=== PATIENT | male | born 1990 | race American Indian/Alaskan Native ===

== ENCOUNTER 2017-01-01 11:39 | Emergency (ER) | payer SELFPAY ==
[2017-01-01 11:50] VITALS: BP 126/60
--- NOTE | 2017-01-01 12:53 | Emergency Department Report ---
ED Recheck HPI - General Chief Complaint: Recheck/Abnormal Lab/Rx Stated Complaint: ASTHMA Time Seen by Provider: 01/01/17 12:48 Source: patient Mode of arrival: Ambulatory Limitations: No Limitations - History of Present Illness Initial Comments: This is a 26-year-old male came in for medication refill. Patient denies any shortness of breath, cough, symptoms of his exhibition of asthma, no chest pain. Patient stated he has a primary care physician but due to his his insurance unable to see up his primary care physician. Patient stated the last time he took his medication 3 days ago. Patient does not seem any signs of any distress nontoxic appearance. MD Complaint: medication refill request -: Gradual Returns Today for: request for prescription (medication refill) Symptoms Since Prior Visit: no new symptoms (patient denies any new symptoms or any exacerbations of his asthma) Associated Symptoms: none. denies: fever, chills, chest pain, shortness of breath, rash, malaise, abdominal pain - Related Data Previous Rx's Medication Instructions Recorded Last Taken Type ALBUTEROL Inhaler [ProAir HFA 2 puff IH QID PRN #1 inhalation 12/18/14 Unknown Rx Inhaler] Albuterol *Only Ed* [Proventil 2.5 mg IH Q4H PRN 30 Days 12/18/14 Unknown Rx 0.5% NEBS] Beclomethasone Dipropionat(Nf) 7.3 gm IH BID #1 aer.w.adap 12/18/14 Unknown Rx [Qvar] ALBUTEROL Inhaler [Proair] 2 puff IH QID PRN #1 inhalation 01/01/17 Unknown Rx ALBUTEROL NEB's [Proventil] 2.5 mg IH TID PRN #30 neb 01/01/17 Unknown Rx Beclomethasone Dipropionate [Qvar] 7.3 gm IH BID #1 aer.w.adap 01/01/17 Unknown Rx Allergies Allergy/AdvReac Type Severity Reaction Status Date / Time No Known Allergies Allergy Verified 01/01/17 11:47 ED Review of Systems ROS: Stated complaint: ASTHMA Other details as noted in HPI Constitutional: denies: chills, fever Eyes: denies: eye pain, eye discharge, vision change ENT: as per HPI. denies: ear pain, throat pain Respiratory: denies: cough, shortness of breath, wheezing Cardiovascular: denies: chest pain, palpitations Endocrine: no symptoms reported Gastrointestinal: denies: abdominal pain, nausea, diarrhea Genitourinary: denies: urgency, dysuria Musculoskeletal: denies: back pain, joint swelling, arthralgia Skin: denies: rash, lesions Neurological: denies: headache, weakness, paresthesias Psychiatric: denies: anxiety, depression Hematological/Lymphatic: denies: easy bleeding, easy bruising ED Past Medical Hx - Past Medical History Hx Asthma: Yes - Surgical History Past Surgical History?: No - Social History Smoking Status: Never Smoker Substance Use Type: Alcohol - Medications Home Medications: Home Medications Medication Instructions Recorded Confirmed Last Taken Type ALBUTEROL Inhaler [ProAir HFA 2 puff IH QID PRN #1 inhalation 12/18/14 Unknown Rx Inhaler] Albuterol *Only Ed* [Proventil 2.5 mg IH Q4H PRN 30 Days 12/18/14 Unknown Rx 0.5% NEBS] Beclomethasone Dipropionat(Nf) 7.3 gm IH BID #1 aer.w.adap 12/18/14 Unknown Rx [Qvar] ALBUTEROL Inhaler [Proair] 2 puff IH QID PRN #1 inhalation 01/01/17 Unknown Rx ALBUTEROL NEB's [Proventil] 2.5 mg IH TID PRN #30 neb 01/01/17 Unknown Rx Beclomethasone Dipropionate [Qvar] 7.3 gm IH BID #1 aer.w.adap 01/01/17 Unknown Rx ED Physical Exam - General Limitations: No Limitations General appearance: alert, in no apparent distress - Respiratory Respiratory exam: Present: normal lung sounds bilaterally. Absent: respiratory distress, wheezes, rales, rhonchi, chest wall tenderness, accessory muscle use - Cardiovascular Cardiovascular Exam: Present: regular rate, normal rhythm. Absent: systolic murmur, diastolic murmur, rubs, gallop - GI/Abdominal GI/Abdominal exam: Present: soft, normal bowel sounds - Neurological Exam Neurological exam: Present: alert, oriented X3 - Psychiatric Psychiatric exam: Present: normal affect, normal mood - Skin Skin exam: Present: warm, dry, intact ED Course Vital Signs 01/01/17 11:47 Temperature 97.8 F Pulse Rate 65 Respiratory 19 Rate Blood Pressure 126/60 O2 Sat by Pulse 98 Oximetry ED Recheck MDM - Medical Decision Making ED course: 1- this 26-year-old male came in for medication refill. Denies any asthma exacerbation and denies shortness of breath, denies cough. Patient does not seem toxic or in appearance of any signs distress. 2-normal vital signs. 3- prescribed Proair, Proventil, Qvar. 4- discussed patient with Dr. Burrell and agreed to not give him prednisone due no acute symptoms and no medical physician to properly moderate patient. Critical care attestation.: If time is entered above; I have spent that time in minutes in the direct care of this critically ill patient, excluding procedure time. ED Disposition Clinical Impression: Medication refill, Asthma Disposition: DISCHARGED TO HOME OR SELFCARE Is pt being admited?: No Does the pt Need Aspirin: No Condition: Stable Instructions: Asthma (ED) Additional Instructions: Please follow up with primary care physician in 3-5 days. If symptoms worsen please come back to emergency department. Prescriptions: ALBUTEROL Inhaler [Proair] 2 puff IH QID PRN #1 inhalation PRN Reason: Shortness Of Breath ALBUTEROL NEB's [Proventil] 2.5 mg IH TID PRN #30 neb PRN Reason: Wheezing Beclomethasone Dipropionate [Qvar] 7.3 gm IH BID #1 aer.w.adap Referrals: [facility] [Outside] - 3-5 Days [facility] [Outside] - 3-5 Days Forms: Work/School Release Form(ED)
== END 2017-01-01 13:43 | disposition home or self-care (01) ==
LOC: ED 11:39
DX: Z76.0 Encounter for issue of repeat prescription (principal); J45.909 Unspecified asthma, uncomplicated
CPT/HCPCS: 99282

== ENCOUNTER 2017-03-12 22:36 | Inpatient (IN) | payer SELFPAY ==
[2017-03-12] MEDS ORDERED: DUONEB 0.5 MG-3 MG/3 ML SOLN IH ONE ×3 (22:56→23:31)
[2017-03-12] MEDS: ATROVENT IH ONE (23:08)
[2017-03-12] MEDS ORDERED: DELTASONE PO ONE (23:30)
[2017-03-12] MEDS ORDERED: DELTASONE ONE (23:36)
[2017-03-12] MEDS ORDERED: PROVENTIL IH ONE ×2 (23:41→23:45)
[2017-03-12 23:59] LABS: Hematocrit 45.1 % (35.5-45.6); Hemoglobin 15.2 gm/dl (11.8-15.2); Mean Corpuscular HGB Conc 34 % (32-34); Mean Corpuscular Hemoglobin 29 pg (28-32); Mean Corpuscular Volume 86 fl (84-94); Platelet Count 169 K/mm3 (140-440); Red Blood Count 5.25 M/mm3 (3.65-5.03); Red Cell Distribution Width 12.3 % (13.2-15.2); White Blood Count 9.9 K/mm3 (4.5-11.0)
[2017-03-13 00:16] LABS: Anion Gap 18 mmol/L; BUN/Creatinine Ratio 13.75; Blood Urea Nitrogen 11 mg/dL (9-20); Calcium 9.4 mg/dL (8.4-10.2); Carbon Dioxide 25 mmol/L (22-30); Glucose 141 mg/dL (75-100); Potassium 3.3 mmol/L (3.6-5.0); Sodium 141 mmol/L (137-145)
--- NOTE | 2017-03-13 01:19 | Emergency Department Report ---
ED Asthma HPI - General Chief Complaint: Adult Asthma Stated Complaint: ALVERTO/ASTHMA/CHEST TIGHTNESS Time Seen by Provider: 03/13/17 00:47 Source: patient Mode of arrival: Ambulatory Limitations: No Limitations - History of Present Illness MD Complaint: "asthma attack" Onset/Timin -: Gradual, days(s) Asthma History: childhood onset Severity: moderate Context: ran out of meds Associated Symptoms: dry cough, chest pain (chest tightness). denies: fever, hemoptysis, leg edema, syncope Treatments Prior to Arrival: other (none) - Related Data Current Asthma Therapy: inhaled bronchodilator Previous Rx's Medication Instructions Recorded Last Taken Type ALBUTEROL Inhaler [ProAir HFA 2 puff IH QID PRN #1 inhalation 12/18/14 Unknown Rx Inhaler] Albuterol *Only Ed* [Proventil 2.5 mg IH Q4H PRN 30 Days 12/18/14 Unknown Rx 0.5% NEBS] Beclomethasone Dipropionat(Nf) 7.3 gm IH BID #1 aer.w.adap 12/18/14 Unknown Rx [Qvar] ALBUTEROL Inhaler [Proair] 2 puff IH QID PRN #1 inhalation 01/01/17 Unknown Rx ALBUTEROL NEB's [Proventil] 2.5 mg IH TID PRN #30 neb 01/01/17 Unknown Rx Beclomethasone Dipropionate [Qvar] 7.3 gm IH BID #1 aer.w.adap 01/01/17 Unknown Rx Allergies Allergy/AdvReac Type Severity Reaction Status Date / Time No Known Allergies Allergy Verified 01/01/17 11:47 ED Review of Systems ROS: Stated complaint: ALVERTO/ASTHMA/CHEST TIGHTNESS Other details as noted in HPI Constitutional: denies: chills, fever Eyes: denies: eye pain, eye discharge, vision change ENT: congestion. denies: ear pain, throat pain, dental pain, hearing loss, epistaxis Respiratory: cough, shortness of breath, wheezing Cardiovascular: chest pain. denies: palpitations, orthopnea, edema, syncope, paroxysmal nocturnal dyspnea Endocrine: no symptoms reported Genitourinary: denies: urgency, dysuria Musculoskeletal: denies: back pain, joint swelling, arthralgia Skin: denies: rash, lesions Neurological: denies: headache, weakness, paresthesias Psychiatric: denies: anxiety, depression Hematological/Lymphatic: denies: easy bleeding, easy bruising ED Past Medical Hx - Past Medical History Previous Medical History?: Yes Hx Asthma: Yes - Surgical History Past Surgical History?: No - Social History Smoking Status: Never Smoker Substance Use Type: None - Medications Home Medications: Home Medications Medication Instructions Recorded Confirmed Last Taken Type ALBUTEROL Inhaler [ProAir HFA 2 puff IH QID PRN #1 inhalation 12/18/14 Unknown Rx Inhaler] Albuterol *Only Ed* [Proventil 2.5 mg IH Q4H PRN 30 Days 12/18/14 Unknown Rx 0.5% NEBS] Beclomethasone Dipropionat(Nf) 7.3 gm IH BID #1 aer.w.adap 12/18/14 Unknown Rx [Qvar] ALBUTEROL Inhaler [Proair] 2 puff IH QID PRN #1 inhalation 01/01/17 Unknown Rx ALBUTEROL NEB's [Proventil] 2.5 mg IH TID PRN #30 neb 01/01/17 Unknown Rx Beclomethasone Dipropionate [Qvar] 7.3 gm IH BID #1 aer.w.adap 01/01/17 Unknown Rx ED Physical Exam - General Limitations: No Limitations General appearance: alert, in no apparent distress - Head Head exam: Present: atraumatic, normocephalic - Eye Eye exam: Present: normal appearance, PERRL, EOMI Pupils: Present: normal accommodation - ENT ENT exam: Present: normal orophraynx, mucous membranes moist, TM's normal bilaterally, normal external ear exam - Neck Neck exam: Present: normal inspection, full ROM. Absent: tenderness, lymphadenopathy, thyromegaly - Respiratory Respiratory exam: Present: wheezes, chest wall tenderness, decreased breath sounds. Absent: rales, rhonchi, stridor, accessory muscle use, prolonged expiratory - Cardiovascular Cardiovascular Exam: Present: tachycardia, normal heart sounds. Absent: rubs, gallop - GI/Abdominal GI/Abdominal exam: Present: soft, normal bowel sounds. Absent: distended, tenderness, guarding, rebound, bruit, hernia - Rectal Rectal exam: Present: deferred - Extremities Exam Extremities exam: Present: normal inspection - Back Exam Back exam: Present: normal inspection - Neurological Exam Neurological exam: Present: alert, altered, oriented X3, CN II-XII intact, normal gait, motor sensory deficit, reflexes normal - Psychiatric Psychiatric exam: Present: normal affect, normal mood - Skin Skin exam: Present: warm, dry, intact ED Course Vital Signs 03/12/17 03/12/17 03/12/17 22:39 23:07 23:16 Temperature 97.5 F L Pulse Rate 110 H Pulse Rate [ 110 H 107 H Posterior Bilateral Throughout] Respiratory 22 Rate Respiratory 18 18 Rate [Posterior Bilateral Throughout] Blood Pressure 140/70 [Right] O2 Sat by Pulse 93 Oximetry 03/12/17 03/12/17 03/12/17 23:20 23:33 23:54 Temperature Pulse Rate Pulse Rate [ 107 H 111 H 103 H Posterior Bilateral Throughout] Respiratory Rate Respiratory 18 18 18 Rate [Posterior Bilateral Throughout] Blood Pressure [Right] O2 Sat by Pulse Oximetry 03/13/17 03/13/17 00:24 01:25 Temperature Pulse Rate 93 H Pulse Rate [ 103 H Posterior Bilateral Throughout] Respiratory 18 Rate Respiratory 16 Rate [Posterior Bilateral Throughout] Blood Pressure 120/67 [Right] O2 Sat by Pulse 88 Oximetry - Reevaluation(s) Reevaluation #1: pt awake alert mild accessory muscle use with breathing, admitted hospitalist at this time DX Asthma Exacerbation. 03/13/17 02:54 ED Medical Decision Making - Lab Data Result diagrams: 03/12/17 23:26 03/12/17 23:26 - Medical Decision Making pt is a 26 y/o aam with asthma no albuterol inhaler nonadherent with same pt denies smoking no substance presents increasing sob x 1 week with exp wheezing , labs noted, pt tx duonebs x 3, prednisone 60 mg po , without improve, pt ambulated ed with increased [place], exam: lungs exp wheezing with diminished bases bilat, pt with eldridge, ABG: PO2: 63 plan admit to hospitalist Dx: Asthma Exacerbation, D-Dimer pending r/o PE will order CT PE protocol of DDimer elevated, discussed same with patient, patient verbalized agreement and understanding with treatment plan. Critical care attestation.: If time is entered above; I have spent that time in minutes in the direct care of this critically ill patient, excluding procedure time. ED Disposition Clinical Impression: Asthma exacerbation, Shortness of breath Disposition: OP ADMIT IP TO THIS HOSP Is pt being admited?: Yes Does the pt Need Aspirin: No Condition: Undetermined Instructions: Asthma (ED) Referrals: PRIMARY CARE, [Primary Care Provider] - 3-5 Days Time of Disposition: 02:54
[2017-03-13] MEDS ORDERED: PROVENTIL IH ONE ×2 (01:31→02:50)
[2017-03-13] MEDS ORDERED: ATROVENT IH ONE (02:52)
[2017-03-13] MEDS: ATROVENT IH ONE (03:55)
[2017-03-13 04:01] LABS: ISTAT Base Excess -2; ISTAT DEVICE 0; ISTAT HCO3 22.3; ISTAT PCO2 31.1 (35-45); ISTAT PH 7.463 (7.35-7.45); ISTAT PO2 63 (80-105); ISTAT SO2 93; ISTAT TCO2 23
[2017-03-13] MEDS ORDERED: MILK OF MAGNESIA PO PRN (04:07)
[2017-03-13] MEDS ORDERED: TYLENOL PO PRN (04:07)
[2017-03-13] MEDS ORDERED: DULCOLAX PR PRN (04:07)
[2017-03-13] MEDS ORDERED: ZOFRAN IV PRN (04:07)
--- NOTE | 2017-03-13 04:22 | History and Physical Report ---
History of Present Illness Date of examination: 03/20/17 History of present illness: : 6-year-old man with history of asthma comes emergency room with complaints of shortness of breath and chest tightness 2 days. The symptoms have not been relieved with nebulizer treatments here complaining of cough productive of yellow phlegm, fever Patient denies chest pain, palpitation, shortness of breath,abdominal pain, hematochezia, dysuria, frequency, focal weakness, dysarthria,chills, polydipsia polyuria, hot or cold intolerance, easy bruisability, or rash or bleeding from mucosal membrane, rhinorrhea, epistaxis, earache, tinnitus, blurry vision, eye discharge, anxiety, depression. Other review of systems negative PAST SURGICAL HISTORY: None SOCIAL HISTORY: Occasional alcohol, no tobacco or drugs FAMILY HISTORY: Hypertension Medications and Allergies Allergies Allergy/AdvReac Type Severity Reaction Status Date / Time No Known Allergies Allergy Verified 01/01/17 11:47 Home Medications Medication Instructions Recorded Confirmed Last Taken Type ALBUTEROL Inhaler [ProAir HFA 2 puff IH QID PRN #1 inhalation 12/18/14 Unknown Rx Inhaler] Albuterol *Only Ed* [Proventil 2.5 mg IH Q4H PRN 30 Days 12/18/14 Unknown Rx 0.5% NEBS] Beclomethasone Dipropionat(Nf) 7.3 gm IH BID #1 aer.w.adap 12/18/14 Unknown Rx [Qvar] ALBUTEROL Inhaler [Proair] 2 puff IH QID PRN #1 inhalation 01/01/17 Unknown Rx ALBUTEROL NEB's [Proventil] 2.5 mg IH TID PRN #30 neb 01/01/17 Unknown Rx Beclomethasone Dipropionate [Qvar] 7.3 gm IH BID #1 aer.w.adap 01/01/17 Unknown Rx Active Meds: Active Medications Acetaminophen (Tylenol) 650 mg PO Q4H PRN PRN Reason: Pain MILD(1-3)/Fever >100.5/PAULA Albuterol/Ipratropium (Duoneb 0.5 Mg-3 Mg/3 Ml Soln) 1 ampul IH Q6HRT BOLA Bisacodyl (Dulcolax) 10 mg ND QDAY PRN PRN Reason: Constipation unrelieved by MOM Enoxaparin Sodium (Lovenox) 40 mg SUB-Q QDAY BOLA Magnesium Hydroxide (Milk Of Magnesia) 30 ml PO Q4H PRN PRN Reason: Constipation Methylprednisolone Sodium Succinate (Solu-Medrol) 125 mg IV Q6H BOLA Ondansetron HCl (Zofran) 4 mg IV Q8H PRN PRN Reason: N/V unrelieved by Reglan Exam - Physical Exam Narrative exam: Gen. appearance: Patient lying in bed, no apparent distress HEENT: Normocephalic, atraumatic, pupils equally round and reactive to light, extraocular movement intact, and no sclericterus,. No JVD or thyromegaly or nodule,neck supple, no carotid bruit ,mucous membranes moist, no exudate or erythema Heart: S1, S2, regular rate and rhythm Lungs: Wheezing decreased air entry bilaterally, breathing comfortable Abdomen: Positive bowel sounds, nontender, nondistended, no organomegaly Extremity: No edema, cyanosis, clubbing Skin: No rash, nodules, warm, dry Neuro: Oriented 3, cranial nerves II-12 intact, speech is fluent, motor and sensory intact - Constitutional Vitals: Temp Pulse Resp BP Pulse Ox 97.5 F L 87 18 120/67 88 03/12/17 22:39 03/13/17 03:56 03/13/17 03:56 03/13/17 01:25 03/13/17 01:25 Results - Labs CBC & Chem 7: 03/12/17 23:26 03/12/17 23:26 Labs: Abnormal lab results 03/12/17 03/12/17 03/13/17 Range/Units 23:26 23:26 02:38 RBC 5.25 H (3.65-5.03) M/mm3 RDW 12.3 L (13.2-15.2) % POC ABG pH 7.463 H (7.35-7.45) POC ABG pCO2 31.1 L (35-45) POC ABG pO2 63 L (80-105) Potassium 3.3 L (3.6-5.0) mmol/L Glucose 141 H (75-100) mg/dL - Imaging and Cardiology Chest x-ray: image reviewed Assessment and Plan Asthma exacerbation with bronchitis Admit to medicine Start IV steroids, azithromycin, nebulizer treatments Start DVT prophylaxis
[2017-03-13 06:01] LABS: Basophils % (Manual) 0 % (0.0-1.8); Blastocytes % (Manual) 0 %
[2017-03-13 06:02] LABS: Anisocytosis Few; Diff Status Complete
--- NOTE | 2017-03-13 07:10 | Admit Criteria Form ---
Admission Criteria Documentation: ASTHMA Clinical Indications for Admission to Inpatient Care (Place 'X' for any and all applicable criteria): Admission is indicated for ANY ONE of the following (1)(2)(3)(4)(5): [ ]I. Absent or markedly diminished breath sounds (silent chest) [ ]II. Oxygen saturation < 92% [ ]III. PaCO2 = / > 42 mm Hg (5.6 kPa) [ ]IV. Peak expiratory flow rate < 40% of predicted or personal best after treatment. [ ]V. Peak expiratory flow rate < 33% of predicted or personal before after treatment [ ]. Change in mental status [ ]VII. Ventilatory support required [ ]VIII. PaO2 < 60 mm Hg (8.0 kPa) [ ]IX. Cyanosis [ ]X. Cardiac dysrhythmia (e.g., bradycardia) [ ]XI. Hemodynamic instability [ ]XII. Radiographic evidence of complication requiring inpatient treatment (e.g., pneumonia, pneumothorax) [X ]XIII. Inpatient admission required rather than observation care (also use Asthma: Observation Care guideline as appropriate) because of ANY ONE of the following: [ X]a) Respiratory finding that is severe or persistent (eg, dyspnea, tachypnea, accessory muscle use) [ ]b) Airflow measurements less than 60% of predicted or personal best that persist (e.g., over 24 hours) or worsen despite treatments [ ]c) Supplemental oxygen or respiratory treatments for over 24 hours that are performable only in acute inpatient setting [ ]d) Other condition, treatment or monitoring requiring inpatient admission. Extended stay beyond goal length of stay may be needed for (26)(27)(28): [ ]a) Severe respiratory failure (23) (29) (30) [ ]b) Secondary causes and complications (25) [ ]c) Status asthmaticus [ ]d) Chronic obstructive asthma [ ]e) Older patients (29) [ ]f) Slow resolution [ ]g) Clinically significant exacerbation of comorbidities (eg, pam. heart failure, atrial fibrillation) The original [employer] content created by [employer] has been revised. The portions of the content which have been revised are identified through the use of italic text or in bold, and [employer] has neither reviewed nor approved the modified material. All other unmodified content is copyright [employer] Please see references footnoted in the original [facility] edition 2016 Admission Criteria Met: Yes
--- NOTE | 2017-03-13 08:53 | XRay Report ---
CHEST TWO VIEWS: 03/12/17 22:36:00 CLINICAL: Shortness of breath. COMPARISON: None FINDINGS: Normal heart and pulmonary vasculature. The lungs are normally expanded and clear. The bones and soft tissues are normal. IMPRESSION: Normal chest.
[2017-03-13] MEDS: DUONEB 0.5 MG-3 MG/3 ML SOLN IH SCH ×3 (08:54→21:27)
[2017-03-13] MEDS: LOVENOX SUB-Q SCH (11:28)
[2017-03-13] MEDS: ZITHROMAX 500 MG in NACL 0.9% 250ML 250 ML IV SCH (14:37)
[2017-03-14] MEDS: DUONEB 0.5 MG-3 MG/3 ML SOLN IH SCH ×3 (02:17→16:30)
[2017-03-14 06:20] LABS: Basophils % (Auto) 0.1 % (0.0-1.8); Hematocrit 46.9 % (35.5-45.6); Hemoglobin 15.7 gm/dl (11.8-15.2); Mean Corpuscular HGB Conc 34 % (32-34); Mean Corpuscular Hemoglobin 29 pg (28-32); Mean Corpuscular Volume 86 fl (84-94); Platelet Count 193 K/mm3 (140-440); Red Blood Count 5.46 M/mm3 (3.65-5.03); Red Cell Distribution Width 12.3 % (13.2-15.2); White Blood Count 17.5 K/mm3 (4.5-11.0)
[2017-03-14 06:32] LABS: Anion Gap 16 mmol/L; Blood Urea Nitrogen 19 mg/dL (9-20); Calcium 9.7 mg/dL (8.4-10.2); Carbon Dioxide 25 mmol/L (22-30); Chloride 100.8 mmol/L (98-107); Glucose 144 mg/dL (75-100); Potassium 5.1 mmol/L (3.6-5.0); Sodium 137 mmol/L (137-145)
--- NOTE | 2017-03-14 08:16 | Progress Note ---
Assessment and Plan Assessment and plan: Pt is a 26 y/o male with asthma admitted with increasing sob x 1 week with exp wheezing, unfortunately not compliant with nebs due to lack of them. Deneis any tobacco or susbstance abuse. In the er pt tx duonebs x 3, prednisone 60 mg po , without improve, pt ambulated ed with increased [place] * Hypoxic Respiratory failure- decreased sat on ambulation in the ER, secondary to asthma exacerbation- Wean oxygen as tolerated * Asthmatic Bronchitis with exacerbation-taper steroids, continue nebs, Peak flow. counselling and need to follow up provided in detail. * Hyperkalemia- was hypokalemic on admission, likely due to correction. will monitor in am, no arrythemia noted * Leukocytosis- iatrogenic secondary to steriods, no evidence of sepsis Hospitalist Physical - Constitutional Vitals: Temp Pulse Resp BP Pulse Ox 98.9 F 98 H 18 125/60 93 03/14/17 00:25 03/14/17 02:33 03/14/17 02:33 03/14/17 00:25 03/14/17 00:25 Results - Labs CBC & Chem 7: 03/14/17 05:47 03/14/17 05:47 Labs: Laboratory Last Values WBC 17.5 K/mm3 (4.5-11.0) H 03/14/17 05:47 RBC 5.46 M/mm3 (3.65-5.03) H 03/14/17 05:47 Hgb 15.7 gm/dl (11.8-15.2) H 03/14/17 05:47 Hct 46.9 % (35.5-45.6) H 03/14/17 05:47 MCV 86 fl (84-94) 03/14/17 05:47 MCH 29 pg (28-32) 03/14/17 05:47 MCHC 34 % (32-34) 03/14/17 05:47 RDW 12.3 % (13.2-15.2) L 03/14/17 05:47 Plt Count 193 K/mm3 (140-440) 03/14/17 05:47 Lymph % (Auto) 6.1 % (13.4-35.0) L 03/14/17 05:47 [place] % (Auto) 4.5 % (0.0-7.3) 03/14/17 05:47 Eos % (Auto) 0.0 % (0.0-4.3) 03/14/17 05:47 Baso % (Auto) 0.1 % (0.0-1.8) 03/14/17 05:47 Lymph # 1.1 K/mm3 (1.2-5.4) L 03/14/17 05:47 [place] # 0.8 K/mm3 (0.0-0.8) 03/14/17 05:47 Eos # 0.0 K/mm3 (0.0-0.4) 03/14/17 05:47 Baso # 0.0 K/mm3 (0.0-0.1) 03/14/17 05:47 Add Manual Diff Complete 03/12/17 23:26 Total Counted 100 03/12/17 23:26 Seg Neutrophils % 89.3 % (40.0-70.0) H 03/14/17 05:47 Seg Neuts % (Manual) 42.0 % (40.0-70.0) 03/12/17 23:26 Band Neutrophils % 1.0 % 03/12/17 23:26 Lymphocytes % (Manual) 22.0 % (13.4-35.0) 03/12/17 23:26 Reactive Lymphs % (Man) 0 % 03/12/17 23:26 Monocytes % (Manual) 8.0 % (0.0-7.3) H 03/12/17 23:26 Eosinophils % (Manual) 27.0 % (0.0-4.3) H 03/12/17 23:26 Basophils % (Manual) 0 % (0.0-1.8) 03/12/17 23:26 Metamyelocytes % 0 % 03/12/17 23:26 Myelocytes % 0 % 03/12/17 23:26 Promyelocytes % 0 % 03/12/17 23:26 Blast Cells % 0 % 03/12/17 23:26 Nucleated RBC % Not Reportable 03/12/17 23:26 Seg Neutrophils # 15.7 K/mm3 (1.8-7.7) H 03/14/17 05:47 Seg Neutrophils # Man 4.2 K/mm3 (1.8-7.7) 03/12/17 23:26 Band Neutrophils # 0.1 K/mm3 03/12/17 23:26 Lymphocytes # (Manual) 2.2 K/mm3 (1.2-5.4) 03/12/17 23:26 Abs React Lymphs (Man) 0.0 K/mm3 03/12/17 23:26 Monocytes # (Manual) 0.8 K/mm3 (0.0-0.8) 03/12/17 23:26 Eosinophils # (Manual) 2.7 K/mm3 (0.0-0.4) H 03/12/17 23:26 Basophils # (Manual) 0.0 K/mm3 (0.0-0.1) 03/12/17 23:26 Metamyelocytes # 0.0 K/mm3 03/12/17 23:26 Myelocytes # 0.0 K/mm3 03/12/17 23:26 Promyelocytes # 0.0 K/mm3 03/12/17 23:26 Blast Cells # 0.0 K/mm3 03/12/17 23:26 WBC Morphology Not Reportable 03/12/17 23:26 Hypersegmented Neuts Not Reportable 03/12/17 23:26 Hyposegmented Neuts Not Reportable 03/12/17 23:26 Hypogranular Neuts Not Reportable 03/12/17 23:26 Smudge Cells Not Reportable 03/12/17 23:26 Toxic Granulation Not Reportable 03/12/17 23:26 Toxic Vacuolation Not Reportable 03/12/17 23:26 Dohle Bodies Not Reportable 03/12/17 23:26 Pelger-Huet Anomaly Not Reportable 03/12/17 23:26 Cruz Rods Not Reportable 03/12/17 23:26 Platelet Estimate Appears normal 03/12/17 23:26 Clumped Platelets Not Reportable 03/12/17 23:26 Plt Clumps, EDTA Not Reportable 03/12/17 23:26 Large Platelets Not Reportable 03/12/17 23:26 Giant Platelets Not Reportable 03/12/17 23:26 Platelet Satelliting Not Reportable 03/12/17 23:26 Plt Morphology Comment Not Reportable 03/12/17 23:26 RBC Morphology Not Reportable 03/12/17 23:26 Dimorphic RBCs Not Reportable 03/12/17 23:26 Polychromasia Not Reportable 03/12/17 23:26 Hypochromasia Not Reportable 03/12/17 23:26 Poikilocytosis Not Reportable 03/12/17 23:26 Anisocytosis Few 03/12/17 23:26 Microcytosis Not Reportable 03/12/17 23:26 Macrocytosis Not Reportable 03/12/17 23:26 Spherocytes Not Reportable 03/12/17 23:26 Pappenheimer Bodies Not Reportable 03/12/17 23:26 Sickle Cells Not Reportable 03/12/17 23:26 Target Cells Not Reportable 03/12/17 23:26 Tear Drop Cells Not Reportable 03/12/17 23:26 Ovalocytes Not Reportable 03/12/17 23:26 Helmet Cells Not Reportable 03/12/17 23:26 [place] Bodies Not Reportable 03/12/17 23:26 [place] Rings Not Reportable 03/12/17 23:26 [place] Cells Not Reportable 03/12/17 23:26 Bite Cells Not Reportable 03/12/17 23:26 Crenated Cell Not Reportable 03/12/17 23:26 Elliptocytes Not Reportable 03/12/17 23:26 Acanthocytes (Spur) Not Reportable 03/12/17 23:26 Rouleaux Not Reportable 03/12/17 23:26 Hemoglobin C Crystals Not Reportable 03/12/17 23:26 Schistocytes Not Reportable 03/12/17 23:26 Malaria parasites Not Reportable 03/12/17 23:26 Kaleb Bodies Not Reportable 03/12/17 23:26 Hem Pathologist Commnt No 03/12/17 23:26 D-Dimer 218.01 ng/mlDDU (0-234) 03/13/17 03:17 POC ABG pH 7.463 (7.35-7.45) H 03/13/17 02:38 POC ABG pCO2 31.1 (35-45) L 03/13/17 02:38 POC ABG pO2 63 (80-105) L 03/13/17 02:38 POC ABG HCO3 22.3 03/13/17 02:38 POC ABG Total CO2 23 03/13/17 02:38 POC ABG O2 Sat 93 03/13/17 02:38 POC ABG Base Excess -2 03/13/17 02:38 VBG pH 7.347 (7.320-7.420) 03/12/17 23:26 FiO2 21 % 03/13/17 02:38 Sodium 137 mmol/L (137-145) 03/14/17 05:47 Potassium 5.1 mmol/L (3.6-5.0) H D 03/14/17 05:47 Chloride 100.8 mmol/L (98-107) 03/14/17 05:47 Carbon Dioxide 25 mmol/L (22-30) 03/14/17 05:47 Anion Gap 16 mmol/L 03/14/17 05:47 BUN 19 mg/dL (9-20) 03/14/17 05:47 Creatinine 1.0 mg/dL (0.8-1.5) 03/14/17 05:47 Estimated GFR > 60 ml/min 03/14/17 05:47 BUN/Creatinine Ratio 19.00 % 03/14/17 05:47 Glucose 144 mg/dL (75-100) H 03/14/17 05:47 Lactic Acid 1.50 mmol/L (0.7-2.0) 03/12/17 23:26 Calcium 9.7 mg/dL (8.4-10.2) 03/14/17 05:47 Magnesium 2.10 mg/dL (1.7-2.3) 03/12/17 23:26 Troponin T < 0.010 ng/mL (0.00-0.029) 03/12/17 23:26
[2017-03-14] MEDS: LOVENOX SUB-Q SCH (10:43)
--- NOTE | 2017-03-14 11:51 | Discharge Summary ---
Providers - Providers Date of Admission: 03/13/17 04:07 Date of discharge: 03/14/17 Attending physician: MAHNAZ MADRID MD Primary care physician: [facility] [employer] [employer] Hospitalization Reason for admission: acute respiratory distress Condition: Stable Hospital course: 26-year-old man with history of asthma comes emergency room with complaints of shortness of breath and chest tightness 2 days. The symptoms have not been relieved with nebulizer treatments here complaining of cough productive of yellow phlegm, fever. Patient informs me today that he has not ever had this type of situation in the past. He recently moved into his grandmother's old home and he feels that advance has not been cleaned and this is what triggered his asthma. He is significantly improved today. Although I did inform him that we just changed his steroids to a lower dose he adamantly wants to be discharged. I have prescribed prolonged taper of steroids for him. I've also provided counseling to him and management pending to follow up with his primary care physician and also to start on a peak flow meter. He is ambulating with improvement of his saturation not requiring oxygen saturating 94% on room air. Patient denies chest pain, palpitation, shortness of breath,abdominal pain, hematochezia, dysuria, frequency, focal weakness, dysarthria,chills, polydipsia polyuria, hot or cold intolerance, easy bruisability, or rash or bleeding from mucosal membrane, rhinorrhea, epistaxis, earache, tinnitus, blurry vision, eye discharge, anxiety, depression. Other review of systems negative Discharge diagnosis * Acute hypoxic respiratory failure * Asthma exacerbation * Asthmatic bronchitis * Leukocytosis reactive * Hyperkalemia Disposition: - TO HOME OR SELFCARE Time spent for discharge: 35 mins Core Measure Documentation - Palliative Care Palliative Care/ Comfort Measures: Not Applicable - Core Measures Any of the following diagnoses?: none - VTE Discharge Requirements Deep Vein Thrombosis/Pulmonary Embolism Present on Admission: No Exam - Physical Exam Narrative exam: VITAL SIGNS: Reviewed. GENERAL: The patient appeared well nourished and normally developed. Vital signs as documented. HEAD: No signs of head trauma. EYES: Pupils are equal. Extraocular motions intact. EARS: Hearing grossly intact. MOUTH: Oropharynx is normal. NECK: No adenopathy, no JVD. CHEST: Chest with mild expiratory wheeze at the bases bilaterally CARDIAC: Regular rate and rhythm. S1 and S2, without murmurs, gallops, or rubs. VASCULAR: No Edema. Peripheral pulses normal and equal in all extremities. ABDOMEN: Soft, without detectable tenderness. No sign of distention. No rebound or guarding, and no masses palpated. Bowel Sounds normal. MUSCULOSKELETAL: Good range of motion of all major joints. Extremities without clubbing, cyanosis or edema. NEUROLOGIC EXAM: Alert and oriented x 3. No focal sensory or strength deficits. Speech normal. Follows commands. PSYCHIATRIC: Mood normal. SKIN: No rash or lesions. - Constitutional Vitals: Temp Pulse Resp BP Pulse Ox 99.7 F H 101 H 18 141/59 93 03/14/17 09:20 03/14/17 09:52 03/14/17 09:52 03/14/17 09:20 03/14/17 09:50 Plan Activity: advance as tolerated, fall precautions Diet: regular Follow up with: PRIMARY CARE, [Primary Care Provider] - 3-5 Days Prescriptions: Azithromycin [Zithromax TAB] 250 mg PO QDAY #5 tablet predniSONE [Deltasone] 10 mg PO .TAPER #48 tab
[2017-03-14] MEDS: ZITHROMAX 500 MG in NACL 0.9% 250ML 250 ML IV SCH (11:55)
[2017-03-14 19:09] VITALS: BP 112/57
== END 2017-03-14 17:00 | disposition home or self-care (01) | DRG 189 ==
LOC: ED 22:36 → 3A 03-13 04:07
PROVIDERS: ADMIT Internal Medicine; ATTEND Internal Medicine
PROC: 4A033R1 Measurement of Arterial Saturation, Peripheral, Percutaneous Approach (ICD-10-PCS; principal; 2017-03-13)
DX: J96.01 Acute respiratory failure with hypoxia (principal); J45.901 Unspecified asthma with (acute) exacerbation; D72.829 Elevated white blood cell count, unspecified; E87.5 Hyperkalemia; Z71.89 Other specified counseling; Z82.49 Family history of ischemic heart disease and other diseases of the circulatory system
CPT/HCPCS: 36415; 71020; 80048; 82140; 82803; 82805; 83735; 84484; 85007; 85025; 85379; 93005; 93010; 94640; 94760; J0456; J1650; J2920; J2930; J7050; J7512

== ENCOUNTER 2018-04-22 00:32 | Emergency (ER) | payer OTHER ==
[2018-04-22 02:24] LABS: Bilirubin,Urine NEG (Negative); Blood,Urine NEG (Negative); Color,Urine Yellow (Yellow); Protein,Urine <15 mg/dL mg/dL (Negative); Urobilinogen,Urine < 2.0 mg/dL (<2.0); WBC,Urine < 1.0 /HPF (0.0-6.0)
--- NOTE | 2018-04-22 03:23 | Ultrasound Report ---
FINAL REPORT PROCEDURE: US TESTICULAR DOPPLER COMP TECHNIQUE: Real-time larsen-scale and color flow Doppler sonography in multiple planes of the scrotum, testicles, and epididymes was performed. Velocity spectral waveform analysis Doppler imaging of the arterial inflow and venous outflow of the testicles was performed with image documentation. CPT 38678 and 90757 HISTORY: testicular pain COMPARISON: No prior studies are available for comparison. FINDINGS: RIGHT TESTICLE: Size: 4.7 x 2.3 x 3.4 cm . Appearance: Normal size and echotexture . Arterial blood flow: Normal spectral waveforms, flow velocities and color flow images.. Venous blood flow: Normal spectral waveforms and color flow images. Right epididymis: Normal size and echotexture . Hydrocele: None . LEFT TESTICLE Size: 4.7 x 2.3 x 3.6 cm . Appearance: Normal size and echotexture . Arterial blood flow: Normal spectral waveforms, flow velocities and color flow images.. Venous blood flow: Normal spectral waveforms and color flow images. Leftepididymis: Normal size and echotexture. There is a cyst in measuring 7-8 millimeters. Hydrocele: None . IMPRESSION: There is no testicular torsion, orchitis or mass. There is no hydrocele or varicocele. There is a tiny cyst in the left epididymis.
[2018-04-22 05:05] VITALS: BP 116/57
--- NOTE | 2018-04-22 05:05 | Emergency Department Report ---
ED Male HPI - General Chief complaint: Urogenital-Male Stated complaint: SEVERE GROIN PAIN Time Seen by Provider: 04/22/18 04:25 Source: patient Mode of arrival: Ambulatory Limitations: No Limitations - History of Present Illness Initial comments: This is a 27-year-old male nontoxic, well nourished in appearance, no acute signs of distress presents to the ED with c/o of chronic bilateral testicular pain and penile bumps x2 months. Patient denies any testicular swelling or redness. Patient denies any penile ulcers or lesions. Patient denies any penile discharge. Patient denies any nausea, vomiting, chest pain, shortness of breathe, fever, chills, headache, back pain, numbness, tingling, stiff neck. Patient denies any urinary symptoms. Patient denies any allergies or PMH. MD Complaint: testicle pain, other (gential bump) -: month(s) (2) Location: penis Radiation: none Severity: mild Severity scale (0 -10): 3 Quality: aching Consistency: intermittent Improves with: none Worsens with: none denies other symptoms. denies: discharge, swelling, mass, rash, urinary retention, blood in urine, dysuria, fever, nausea/vomiting, incontinence - Related Data Previous Rx's Medication Instructions Recorded Last Taken Type Albuterol *Only Ed* [Proventil 2.5 mg IH Q4H PRN 30 Days nebu 12/18/14 Unknown Rx 0.5% NEBS] Beclomethasone Dipropionat(Nf) 7.3 gm IH BID #1 aer.w.adap 12/18/14 Unknown Rx [Qvar 40MCG] ALBUTEROL Inhaler [ProAir HFA 2 puff IH QID PRN #1 inhalation 01/01/17 Unknown Rx Inhaler] ALBUTEROL NEB's [Proventil 0.083% 2.5 mg IH TID PRN #30 neb 01/01/17 Unknown Rx NEBS] ALBUTEROL Inhaler [ProAir HFA 2 puff IH QID PRN #1 inhalation 03/14/17 Unknown Rx Inhaler] Azithromycin [Zithromax TAB] 250 mg PO QDAY #5 tablet 03/14/17 Unknown Rx Beclomethasone Dipropionate [Qvar] 7.3 gm IH BID #1 aer.w.adap 03/14/17 Unknown Rx predniSONE [Deltasone] 10 mg PO .TAPER #48 tab 03/14/17 Unknown Rx Allergies Allergy/AdvReac Type Severity Reaction Status Date / Time No Known Allergies Allergy Verified 04/22/18 01:17 ED Review of Systems ROS: Stated complaint: SEVERE GROIN PAIN Other details as noted in HPI Constitutional: denies: chills, fever Eyes: denies: eye pain, eye discharge, vision change ENT: denies: ear pain, throat pain Respiratory: denies: cough, shortness of breath, wheezing Cardiovascular: denies: chest pain, palpitations Endocrine: no symptoms reported Gastrointestinal: denies: abdominal pain, nausea, diarrhea Genitourinary: denies: urgency, dysuria Musculoskeletal: denies: back pain, joint swelling, arthralgia Skin: denies: rash, lesions Neurological: denies: headache, weakness, paresthesias Psychiatric: denies: anxiety, depression Hematological/Lymphatic: denies: easy bleeding, easy bruising ED Past Medical Hx - Past Medical History Hx Asthma: Yes - Surgical History Past Surgical History?: No - Social History Smoking Status: Never Smoker Substance Use Type: None - Medications Home Medications: Home Medications Medication Instructions Recorded Confirmed Last Taken Type Albuterol *Only Ed* [Proventil 2.5 mg IH Q4H PRN 30 Days nebu 12/18/14 Unknown Rx 0.5% NEBS] Beclomethasone Dipropionat(Nf) 7.3 gm IH BID #1 aer.w.adap 12/18/14 Unknown Rx [Qvar 40MCG] ALBUTEROL Inhaler [ProAir HFA 2 puff IH QID PRN #1 inhalation 01/01/17 Unknown Rx Inhaler] ALBUTEROL NEB's [Proventil 0.083% 2.5 mg IH TID PRN #30 neb 01/01/17 Unknown Rx NEBS] ALBUTEROL Inhaler [ProAir HFA 2 puff IH QID PRN #1 inhalation 03/14/17 Unknown Rx Inhaler] Azithromycin [Zithromax TAB] 250 mg PO QDAY #5 tablet 03/14/17 Unknown Rx Beclomethasone Dipropionate [Qvar] 7.3 gm IH BID #1 aer.w.adap 03/14/17 Unknown Rx predniSONE [Deltasone] 10 mg PO .TAPER #48 tab 03/14/17 Unknown Rx ED Physical Exam - General Limitations: No Limitations General appearance: alert, in no apparent distress - Head Head exam: Present: atraumatic, normocephalic - Eye Eye exam: Present: normal appearance - ENT ENT exam: Present: mucous membranes moist - Neck Neck exam: Present: normal inspection - Respiratory Respiratory exam: Present: normal lung sounds bilaterally. Absent: respiratory distress - Cardiovascular Cardiovascular Exam: Present: regular rate, normal rhythm. Absent: systolic murmur, diastolic murmur, rubs, gallop - GI/Abdominal GI/Abdominal exam: Present: soft, normal bowel sounds - Rectal Rectal exam: Present: deferred - exam: Present: normal inspection. Absent: testicular tenderness, urethral discharge, scrotal swelling, vertical testicular lie, circumcision External exam: Present: normal external exam, other (Penile gential wart present ). Absent: erythema, swelling, lesions, lacerations, ecchymosis, bleeding - Extremities Exam Extremities exam: Present: normal inspection, full ROM - Back Exam Back exam: Present: normal inspection, full ROM - Neurological Exam Neurological exam: Present: alert, oriented X3 - Psychiatric Psychiatric exam: Present: normal affect, normal mood - Skin Skin exam: Present: warm, dry, intact, normal color. Absent: rash ED Course Vital Signs 04/22/18 00:30 Temperature 98.3 F Pulse Rate 71 Respiratory 16 Rate Blood Pressure 116/57 O2 Sat by Pulse 98 Oximetry - Reevaluation(s) Reevaluation #1: 04/22/18 05:05 Patient is speaking in full sentences with no signs of distress noted. ED Medical Decision Making - Medical Decision Making This is a 27-year-old male that presents with genital warts. Patient is stable was examined by me. There is no groin or testicular tenderness. No abdominal pain. UA obtained within normal limits. US testicular within normal limits. Patient was instructed to Follow-up with a primary care doctor in 3-5 days for genital wart treatment or if symptoms worsen and continue return to emergency room as soon as possible. At time of discharge, the patient does not seem toxic or ill in appearance. No acute signs of distress noted. Patient agrees to discharge treatment plan of care. No further questions noted by the patient. Critical care attestation.: If time is entered above; I have spent that time in minutes in the direct care of this critically ill patient, excluding procedure time. ED Disposition Clinical Impression: Genital warts Disposition: - TO HOME OR SELFCARE Is pt being admited?: No Does the pt Need Aspirin: No Condition: Stable Instructions: Genital Warts (ED) Additional Instructions: Follow-up with a primary care doctor in 3-5 days or if symptoms worsen and continue return to emergency room as soon as possible. Referrals: GO SAM MD [Primary Care Provider] - 3-5 Days PRIMARY CARE, [Referring] - 3-5 Days EDUIN CAMPBELL MD [Staff Physician] - 3-5 Days [facility] [Outside] - 3-5 Days [facility] [Outside] - 3-5 Days Forms: Work/School Release Form(ED)
== END 2018-04-22 06:30 | disposition home or self-care (01) ==
LOC: ED 00:32
DX: A63.0 Anogenital (venereal) warts (principal); J45.909 Unspecified asthma, uncomplicated
CPT/HCPCS: 81001; 93975; 99284